=== PATIENT | female | born 1930 | race Caucasian/White ===

== ENCOUNTER 2017-08-12 20:20 | Emergency (ER) | payer OTHER ==
[~2017-08-12] VITALS: Ht 142.2 cm; Wt 32.0 kg
[2017-08-12] MEDS ORDERED: ALEN10 PO (20:26)
[2017-08-12] MEDS ORDERED: SERT50TA12 PO (20:26)
[2017-08-12] MEDS ORDERED: ATOR10TA84 PO (20:27)
[2017-08-12] MEDS ORDERED: MORPHINE SULFATE 2 MG/ML SYRINGE IVP ONE (21:45)
[2017-08-12] MEDS ORDERED: MORPHINE SULFATE 4 MG/ML SYRINGE IVP ONE (21:45)
[2017-08-12] MEDS ORDERED: FentaNYL CITRATE-PF 100 MCG/2 ML VIAL IVP ONE (22:30)
[2017-08-12] MEDS ORDERED: MIDAZOLAM HCL 5 MG/ML VIAL IVP ONE (22:30)
[2017-08-12 23:51] VITALS: BP 153/60
== END 2017-08-13 00:51 | disposition home or self-care (01) ==
LOC: EMS 20:24
DX: S43.005A Unspecified dislocation of left shoulder joint, initial encounter (principal); S42.292A Other displaced fracture of upper end of left humerus, initial encounter for closed fracture; E78.00 Pure hypercholesterolemia, unspecified; W01.0XXA Fall on same level from slipping, tripping and stumbling without subsequent striking against object, initial encounter; Y93.89 Activity, other specified; Y92.89 Other specified places as the place of occurrence of the external cause; Y99.8 Other external cause status
CPT/HCPCS: 23650; 73030; 93005; 96374; 96375; 99285; J2250; J2270; J3010

== ENCOUNTER 2018-05-29 23:11 | Emergency (ER) | payer OTHER ==
[~2018-05-29] VITALS: Ht 147.3 cm; Wt 31.5 kg
[~2018-05-29 23:11] MED LIST: ALEN10 PO; ATOR10TA84 PO; SERT50TA12 PO
[2018-05-29 23:32] LABS: BASOPHILS % (AUTO) 0.5 % (0.0-2.0); EOSINOPHILS % (AUTO) 0.8 % (1.0-6.0); HEMATOCRIT 27.5 % (36-46); HEMOGLOBIN 9.2 g/dL (12.0-16.0); LYMPHOCYTES # (AUTO) 1.3 K/uL (1.0-4.8); LYMPHOCYTES % (AUTO) 12.2 % (22.0-44.0); MEAN CORPUSCULAR HEMOGLOBIN 30.8 pg (26.0-34.0); MEAN CORPUSCULAR HGB CONC 33.6 G/dL (31.0-37.0); MEAN CORPUSCULAR VOLUME 92 fL (80-100); MONOCYTES # (AUTO) 1.1 K/uL (0.1-1.0); MONOCYTES % (AUTO) 9.9 % (2.0-9.0); NEUTROPHILS # (AUTO) 8.5 K/uL (1.8-7.7); NEUTROPHILS % (AUTO) 76.6 % (40.0-70.0); PLATELET COUNT (AUTO) 583 K/uL (150-450); RED BLOOD CELL COUNT(AUTO) 2.99 MIL/uL (4.00-5.20); RED CELL DISTRIBUTION WIDTH 14.8 % (11.5-14.5)
[2018-05-29 23:59] LABS: INR 1.2 (0.9-1.1)
[2018-05-30 00:02] LABS: ANION GAP 9 mmol/L (8-16); CALCIUM, TOTAL 8.9 mg/dL (8.8-10.5); CARBON DIOXIDE 25 mmol/L (22-29); CHLORIDE 100 mmol/L (98-107); CREATININE 0.98 mg/dL (0.60-1.30); GLOMERULAR FILTR. RATE CALC 54 mL/min (>60); GLUCOSE,RANDOM 108 mg/dL (70-110); POTASSIUM 3.9 mmol/L (3.5-5.1); SODIUM SERUM 134 mmol/L (136-145); UREA NITROGEN, BLOOD 17 mg/dL (7-18)
[2018-05-30 00:06] LABS: ALANINE AMINOTRANSFERASE 11 U/L (12-78); ALBUMIN 2.3 g/dL (3.4-5.0); ALKALINE PHOSPHATASE 96 U/L (46-116); ASPARTATE AMINOTRANSFERASE 15 U/L (15-37); BILIRUBIN,TOTAL 0.3 mg/dL (0.1-1.0); CREATINE KINASE, TOTAL 39 U/L (26-192)
[2018-05-30] MEDS ORDERED: ACET-2247 PO (00:09)
[2018-05-30] MEDS ORDERED: LEVO25VI4 IV (00:09)
[2018-05-30] MEDS ORDERED: LEVO55OS OP (00:09)
[2018-05-30] MEDS ORDERED: FLUT16H NASAL (00:09)
[2018-05-30] MEDS ORDERED: ASPIRIN 325 MG TABLET PO ONE (01:00)
[2018-05-30 01:03] VITALS: BP 144/68
[2018-05-30 02:03] LABS: APPEARANCE,URINE CLEAR (CLEAR); BILIRUBIN,URINE NEGATIVE (NEGATIVE); GLUCOSE, URINE (UA) NEGATIVE (NEGATIVE); KETONES,URINE TRACE mg/dL (NEGATIVE); LEUKOCYTE ESTERASE ,URINE NEGATIVE (NEGATIVE); NITRATE,URINE NEGATIVE (NEGATIVE); OCCULT BLOOD,URINE NEGATIVE (NEGATIVE); PROTEIN,URINE TRACE (NEGATIVE); UROBILINOGEN,URINE 0.2 mg/dL (<=1.0)
== END 2018-05-30 03:28 | disposition short-term general hospital (02) ==
LOC: EMS 23:12
DX: G45.9 Transient cerebral ischemic attack, unspecified (principal); I63.9 Cerebral infarction, unspecified; E78.00 Pure hypercholesterolemia, unspecified
CPT/HCPCS: 70496; 93005; 99291